=== PATIENT | male | born 1990 | race African-American/Black ===

== ENCOUNTER 2019-03-31 09:42 | Emergency (ER) | payer SELFPAY ==
--- NOTE | 2019-03-31 10:39 | ER ---
Nurse's Notes [facility] Name: Artis North Age: 28 yrs Sex: Male : 1990 Arrival Date: 03/31/2019 Time: 09:45 Bed 10 Private MD: Diagnosis: Conjunctivitis-left eye Presentation: 03/31 09:53 Presenting complaint: Patient states: red, itchy, watery, crusty left eye since iw yesterday. Transition of care: patient was not received from another setting of care. Onset of symptoms was March 30, 2019. Risk Assessment: Do you want to hurt yourself or someone else? Patient reports no desire to harm self or others. Initial Sepsis Screen: Does the patient meet any 2 criteria? No. Patient's initial sepsis screen is negative. Does the patient have a suspected source of infection? No. Patient's initial sepsis screen is negative. Care prior to arrival: None. 09:53 Method Of Arrival: Ambulatory iw 09:53 Acuity: JACKIE 4 iw Historical: - Allergies: 09:56 No Known Allergies; iw - Home Meds: 09:56 None [Active]; iw - PMHx: 09:56 None; iw - PSHx: 09:56 None; iw - Immunization history:: Adult Immunizations up to date. - Social history:: Smoking status: Patient/guardian denies using tobacco. - Ebola Screening: : Patient negative for fever greater than or equal to 101.5 degrees Fahrenheit, and additional compatible Ebola Virus Disease symptoms Patient denies exposure to infectious person Patient denies travel to an Ebola-affected area in the 21 days before illness onset No symptoms or risks identified at this time. Screenin:07 Abuse screen: Denies threats or abuse. Denies injuries from another. Nutritional iw screening: No deficits noted. Tuberculosis screening: No symptoms or risk factors identified. Fall Risk None identified. Assessment: 10:06 General: Appears in no apparent distress. Behavior is calm, cooperative. Pain: Denies iw pain. Neuro: Level of Consciousness is awake, alert, obeys commands, Oriented to person, place, time, situation, Moves all extremities. Cardiovascular: Patient's skin is warm and dry. Respiratory: Respiratory effort is even, unlabored. EENT: Eyes are tearing on outer aspect of conjuctiva of left eye, iris of left eye and inner aspect of conjunctiva of left eye Sclera/Cornea are reddened in outer aspect of conjuctiva of left eye, iris of left eye and inner aspect of conjunctiva of left eye. Derm: Skin is intact, is healthy with good turgor. Musculoskeletal: Range of motion: intact in all extremities. Vital Signs: 10:06 BP 137 / 84; Pulse 86; Resp 16; Temp 98.5; Pulse Ox 100% ; Weight 91.17 kg; Height 5 iw ft. 10 in. (177.80 cm); Pain 0/10; 10:06 Body Mass Index 28.84 (91.17 kg, 177.80 cm) iw Visual Acuity: 10:40 Left Eye Visual acuity 20/40, Pupil size 3 mm, ; Right Eye Visual acuity 20/40, Pupil iw size 3 mm, ; Both Eyes Visual acuity 20/30; Without Lenses; ED Course: 09:45 Patient arrived in ED. as 09:53 Gladys Turcios RN is Primary Nurse. iw 09:55 Triage completed. iw 10:05 Arm band placed on. iw 10:14 Shane Jefferson PA is PHCP. cp 10:14 Robert Gibson MD is Attending Physician. cp 10:36 David White MD is Referral Physician. cp 10:40 No provider procedures requiring assistance completed. Patient did not have IV access iw during this emergency room visit. 10:41 Patient has correct armband on for positive identification. iw Administered Medications: No medications were administered Outcome: 10:37 Discharge ordered by MD. cp 10:39 Discharge instructions given to patient, Instructed on discharge instructions, follow iw up and referral plans. medication usage, Demonstrated understanding of instructions, follow-up care, medications, Prescriptions given X 1. 10:40 Discharged to home ambulatory. iw 10:40 Condition: good 10:54 Patient left the ED. iw Signatures: Laurel Montoya as Gladys Turcios RN RN iw Shane Jefferson PA PA cp
--- NOTE | 2019-03-31 10:39 | EDPHYS ---
Physician Documentation [facility] Name: Artis North Age: 28 yrs Sex: Male : 1990 Arrival Date: 03/31/2019 Time: 09:45 Bed 10 Private MD: ED Physician Robert Gibson HPI: 03/31 10:29 This 28 yrs old Black Male presents to ER via Ambulatory with complaints of Eye Problem.cp 10:30 The patient is experiencing matting or discharge, pain, redness, to the left eye. cp Onset: The symptoms/episode began/occurred 2 day(s) ago. Duration: the symptoms are continuous. Associated signs and symptoms: Pertinent negatives: ear ache, fever. Patient wears glasses. Historical: - Allergies: :56 No Known Allergies; iw - Home Meds: :56 None [Active]; iw - PMHx: :56 None; iw - PSHx: 09:56 None; iw - Immunization history:: Adult Immunizations up to date. - Social history:: Smoking status: Patient/guardian denies using tobacco. - Ebola Screening: : Patient negative for fever greater than or equal to 101.5 degrees Fahrenheit, and additional compatible Ebola Virus Disease symptoms Patient denies exposure to infectious person Patient denies travel to an Ebola-affected area in the 21 days before illness onset No symptoms or risks identified at this time. ROS: 10:30 Constitutional: Negative for body aches, chills, fever, poor PO intake. cp 10:30 Eyes: Positive for pain, redness. cp 10:30 ENT: Negative for drainage from ear(s), ear pain, sore throat, difficulty swallowing, difficulty handling secretions. 10:30 Respiratory: Negative for cough, shortness of breath, wheezing. 10:30 Abdomen/GI: Negative for abdominal pain, nausea, vomiting, and diarrhea. 10:30 Skin: Negative for rash. 10:30 Neuro: Negative for 10:30 All other systems are negative. Exam: 10:31 Head/Face: Normocephalic, atraumatic. cp 10:31 Constitutional: The patient appears in no acute distress, alert, awake, non-diaphoretic, non-toxic, well developed, well nourished, uncomfortable. 10:31 Eyes: Periorbital structures: appear normal, Pupils: equal, round, and reactive to light and accomodation, Extraocular movements: intact throughout, Conjunctiva: normal, no exudate, no injection, Sclera: no appreciated abnormality, Lids and lashes: appear normal, bilaterally. 10:31 ENT: External ear(s): are unremarkable, Ear canal(s): are normal, clear, TM's: dullness, bilaterally, Nose: is normal, Mouth: is normal, Posterior pharynx: is normal, airway is patent, no erythema, no exudate. 10:31 Neck: ROM/movement: is normal, is supple, without pain, no range of motions limitations, no meningismus, no nuchal rigidity. 10:31 Chest/axilla: Inspection: normal, Palpation: is normal, no crepitus, no tenderness. 10:31 Cardiovascular: Rate: normal, Rhythm: regular. 10:31 Respiratory: the patient does not display signs of respiratory distress, Respirations: normal, no use of accessory muscles, no retractions, no splinting, no tachypnea. 10:31 Abdomen/GI: Exam negative for discomfort, distension, guarding, Inspection: abdomen appears normal. 10:31 Neuro: Orientation: to person, place \T\ time. Mentation: is normal, Cerebellar function: is grossly normal, Motor: moves all fours, strength is normal, Sensation: no obvious gross deficits. Vital Signs: 10:06 BP 137 / 84; Pulse 86; Resp 16; Temp 98.5; Pulse Ox 100% ; Weight 91.17 kg; Height 5 iw ft. 10 in. (177.80 cm); Pain 0/10; 10:06 Body Mass Index 28.84 (91.17 kg, 177.80 cm) iw Visual Acuity: 10:40 Left Eye Visual acuity 20/40, Pupil size 3 mm, ; Right Eye Visual acuity 20/40, Pupil iw size 3 mm, ; Both Eyes Visual acuity 20/30; Without Lenses; MDM: 10:15 Patient medically screened. cp 10:36 Data reviewed: vital signs, nurses notes, and as a result, I will admit patient. cp 10:36 Counseling: I had a detailed discussion with the patient and/or guardian regarding: the cp historical points, exam findings, and any diagnostic results supporting the discharge/admit diagnosis, lab results. 03/31 10:21 Order name: Visual Acuity; Complete Time: 10:44 cp Administered Medications: No medications were administered Disposition: 11:00 Chart complete. cp 16:18 Co-signature as Attending Physician, Robert Gibson MD. rn Disposition: 03/31/19 10:37 Discharged to Home. Impression: Conjunctivitis - left eye. - Condition is Stable. - Discharge Instructions: Bacterial Conjunctivitis. - Prescriptions for Gentamicin 0.3 % Ophthalmic Drops - instill 1 drop by OPHTHALMIC route every 4 hours for 7 days; 1 bottle. - Work release form, Medication Reconciliation Form, Thank You Letter, Antibiotic Education, Prescription Opioid Use form. - Follow up: David White MD; When: 1 - 2 days; Reason: Worsening of condition. - Problem is new. - Symptoms have improved. Signatures: Gladys Turcios RN RN iw Nieto, Roman, MD MD rn Page, Corey, PA PA cp Corrections: (The following items were deleted from the chart) 10:35 10:31 Constitutional: Negative for body aches, chills, fever, poor PO intake, cp cp 10:35 10:31 Eyes: Positive for photophobia, Negative for discharge, pain, vision loss, cp cp 10:35 10:31 ENT: Negative for drainage from ear(s), ear pain, sore throat, difficulty cp swallowing, difficulty handling secretions, cp 10:35 10:31 Cardiovascular: Negative for chest pain, palpitations, cp cp 10:35 10:31 Respiratory: Negative for cough, shortness of breath, wheezing, cp cp 10:35 10:31 Abdomen/GI: Negative for abdominal pain, vomiting, diarrhea, constipation, cp cp 10:35 10:31 Neuro: Positive for headache, Negative for altered mental status, weakness, cp cp 10:35 10:31 Skin: Negative for cellulitis, rash, cp cp 10:35 10:31 : Negative for urinary symptoms, cp cp 10:35 10:31 All other systems are negative, cp cp 10:54 10:37 03/31/2019 10:37 Discharged to Home. Impression: Conjunctivitis - left eye. iw Condition is Stable. Discharge Instructions: Bacterial Conjunctivitis. Prescriptions for Gentamicin 0.3 % Ophthalmic Drops - instill 1 drop by OPHTHALMIC route every 4 hours for 7 days; 1 bottle. and Forms are Medication Reconciliation Form, Thank You Letter, Antibiotic Education, Prescription Opioid Use. Follow up: David White; When: 1 - 2 days; Reason: Worsening of condition. Problem is new. Symptoms have improved. cp
[2019-03-31 10:58] VITALS: BP 137/84; TEMP 98.5; O2SAT 100
== END 2019-03-31 10:54 | disposition home or self-care (01) ==
LOC: ER 09:42
DX: H10.9 Unspecified conjunctivitis (principal)
CPT/HCPCS: 99282

== ENCOUNTER 2020-03-28 04:04 | Emergency (ER) | payer SELFPAY ==
--- NOTE | 2020-03-28 04:46 | ER ---
Nurse's Notes [facility] Name: Artis North Age: 29 yrs Sex: Male : 1990 Arrival Date: 03/28/2020 Time: 04:04 Bed 7 Private MD: Diagnosis: Dental caries;Dental root caries;Cutaneous abscess of head [any part, except face]-odontogenic abscess, left upper 1st Molar;Fracture of tooth (traumatic)-old Presentation: 03/28 04:10 Chief complaint: Patient states: Amy got a bad tooth or something, jaw pain and sg toothache, denies N/V//D/Fever at this time. pain with chewing/talking reported. Coronavirus screen: Client denies travel out of the [place] in the last 14 days. At this time, the client does not indicate any symptoms associated with coronavirus-19. Ebola Screen: Patient negative for fever greater than or equal to 101.5 degrees Fahrenheit, and additional compatible Ebola Virus Disease symptoms Patient denies exposure to infectious person. Patient denies travel to an Ebola-affected area in the 21 days before illness onset. No symptoms or risks identified at this time. Initial Sepsis Screen: Does the patient meet any 2 criteria? No. Patient's initial sepsis screen is negative. Does the patient have a suspected source of infection? No. Patient's initial sepsis screen is negative. Risk Assessment: Do you want to hurt yourself or someone else? Patient reports no desire to harm self or others. Onset of symptoms was March 28, 2020. Care prior to arrival: None. Transition of care: patient was not received from another setting of care. 04:10 Method Of Arrival: Ambulatory sg 04:10 Acuity: JACKIE 4 sg Historical: - Allergies: 04:13 No Known Allergies; sg - Home Meds: 04:18 None [Active]; sg - PMHx: 04:18 None; sg - PSHx: 04:13 None; sg - Immunization history:: Adult Immunizations up to date. - Social history:: Smoking status: Patient denies any tobacco usage or history of. - Family history:: not pertinent. Screenin:21 Abuse screen: Denies threats or abuse. Nutritional screening: No deficits noted. ea Tuberculosis screening: No symptoms or risk factors identified. Fall Risk None identified. Assessment: 04:28 General: Appears uncomfortable, Behavior is appropriate for age. Pain: Complains of ea pain in left ear, left cheek and left jaw. Neuro: Level of Consciousness is awake, alert, obeys commands, Oriented to person, place, time, situation. Cardiovascular: Patient's skin is warm and dry. Respiratory: Airway is patent Respiratory effort is even, unlabored, Respiratory pattern is regular, symmetrical. EENT:. EENT: Parent/caregiver reports the patient having pain in left ear, left cheek and left jaw. Derm: swelling noted to left side of face. 04:53 Reassessment: Patient and/or family updated on plan of care and expected duration. Pain ea level reassessed. Patient is alert, oriented x 3, equal unlabored respirations, skin warm/dry/pink. Discharge instruction given to patient, verbalized the understanding of instruction. Pt left ED ambulatory tolerating well. Vital Signs: 04:21 BP 158 / 86; Pulse 82; Resp 16; Temp 97.5; Pulse Ox 98% ; ea ED Course: 04:04 Patient arrived in ED. cl3 04:07 Shane Suarez MD is Attending Physician. kayla 04:10 Arm band placed on. sg 04:17 Tricia Gutierrez, FAREED is Primary Nurse. ea 04:18 Triage completed. sg 04:34 Patient has correct armband on for positive identification. Bed in low position. Call ea light in reach. 04:43 Brennen Dominguez DDS is Referral Physician. kayla 04:54 No provider procedures requiring assistance completed. Patient did not have IV access ea during this emergency room visit. Administered Medications: 04:40 Drug: Clindamycin 600 mg Route: IM; Site: left gluteus; ea 04:54 Follow up: Response: No adverse reaction ea 04:46 Drug: Clindamycin 300 mg Route: PO; ea 04:54 Follow up: Response: No adverse reaction ea 04:46 Drug: Motrin 600 mg Route: PO; ea 04:54 Follow up: Response: No adverse reaction ea Outcome: 04:45 Discharge ordered by . kayla 04:54 Discharged to home ambulatory, with family. ea 04:54 Condition: stable 04:54 Discharge instructions given to patient, Instructed on discharge instructions, follow up and referral plans. medication usage, Demonstrated understanding of instructions, follow-up care, medications, Prescriptions given X 2. 04:55 Patient left the ED. ea Signatures: Cristopher Forbes RN RN sg Anderson, Corey, MD MD cha Antunez, Elena, RN RN ea Lewis, Charde cl3
--- NOTE | 2020-03-28 04:46 | EDPHYS ---
Physician Documentation [facility] Name: Artis North Age: 29 yrs Sex: Male : 1990 Arrival Date: 03/28/2020 Time: 04:04 Bed 7 Private MD: ED Physician Shane Suarez HPI: 03/28 04:33 This 29 yrs old Black Male presents to ER via Ambulatory with complaints of Toothache. kayla 04:33 The patient presents with broken tooth/teeth. The problem is located in the left cheek. kayla Onset: The symptoms/episode began/occurred 3 day(s) ago. Duration: The symptoms are continuous, and are steadily getting worse. Modifying factors: The symptoms are alleviated by nothing, the symptoms are aggravated by nothing. Associated signs and symptoms: The patient has no apparent associated signs or symptoms. Severity of symptoms: At their worst the symptoms were mild, in the emergency department the symptoms are unchanged. The patient has experienced similar episodes in the past, a few times. Historical: - Allergies: 04:13 No Known Allergies; sg - Home Meds: 04:18 None [Active]; sg - PMHx: 04:18 None; sg - PSHx: 04:13 None; sg - Immunization history:: Adult Immunizations up to date. - Social history:: Smoking status: Patient denies any tobacco usage or history of. - Family history:: not pertinent. ROS: 04:33 Constitutional: Negative for fever, chills, and weight loss, Eyes: Negative for injury, kayla pain, redness, and discharge, Neck: Negative for injury, pain, and swelling, Cardiovascular: Negative for chest pain, palpitations, and edema, Respiratory: Negative for shortness of breath, cough, wheezing, and pleuritic chest pain, Abdomen/GI: Negative for abdominal pain, nausea, vomiting, diarrhea, and constipation, Back: Negative for injury and pain, : Negative for injury, bleeding, discharge, and swelling, MS/Extremity: Negative for injury and deformity, Skin: Negative for injury, rash, and discoloration, Neuro: Negative for headache, weakness, numbness, tingling, and seizure, Psych: Negative for depression, anxiety, suicide ideation, homicidal ideation, and hallucinations, Allergy/Immunology: Negative for hives, rash, and allergies, Endocrine: Negative for neck swelling, polydipsia, polyuria, polyphagia, and marked weight changes, Hematologic/Lymphatic: Negative for swollen nodes, abnormal bleeding, and unusual bruising. 04:33 ENT: Positive for Gum pain Teeth pain Exam: 04:33 Constitutional: This is a well developed, well nourished patient who is awake, alert, kayla and in no acute distress. Eyes: Pupils equal round and reactive to light, extra-ocular motions intact. Lids and lashes normal. Conjunctiva and sclera are non-icteric and not injected. Cornea within normal limits. Periorbital areas with no swelling, redness, or edema. Neck: Trachea midline, no thyromegaly or masses palpated, and no cervical lymphadenopathy. Supple, full range of motion without nuchal rigidity, or vertebral point tenderness. No Meningismus. Chest/axilla: Normal chest wall appearance and motion. Nontender with no deformity. No lesions are appreciated. Cardiovascular: Regular rate and rhythm with a normal S1 and S2. No gallops, murmurs, or rubs. Normal PMI, no JVD. No pulse deficits. Respiratory: Lungs have equal breath sounds bilaterally, clear to auscultation and percussion. No rales, rhonchi or wheezes noted. No increased work of breathing, no retractions or nasal flaring. Abdomen/GI: Soft, non-tender, with normal bowel sounds. No distension or tympany. No guarding or rebound. No evidence of tenderness throughout. Back: No spinal tenderness. No costovertebral tenderness. Full range of motion. Male : Normal genitalia with no discharge or lesions. Skin: Warm, dry with normal turgor. Normal color with no rashes, no lesions, and no evidence of cellulitis. MS/ Extremity: Pulses equal, no cyanosis. Neurovascular intact. Full, normal range of motion. Neuro: Awake and alert, GCS 15, oriented to person, place, time, and situation. Cranial nerves II-XII grossly intact. Motor strength 5/5 in all extremities. Sensory grossly intact. Cerebellar exam normal. Normal gait. Psych: Awake, alert, with orientation to person, place and time. Behavior, mood, and affect are within normal limits. 04:33 Head/face: Noted is swelling, tenderness, that is moderate, of the left cheek and left jaw. Vital Signs: 04:21 BP 158 / 86; Pulse 82; Resp 16; Temp 97.5; Pulse Ox 98% ; ea MDM: 04:09 Patient medically screened. [facility] 04:38 Differential diagnosis: dental caries, dental abscess, gingivostomatitis. Data [facility] reviewed: vital signs, nurses notes. Data interpreted: alarm security or surveillance monitor: not applicable for this patient encounter. rate is 82 beats/min, rhythm is regular, Pulse oximetry: on room air is 98 %. Test interpretation: by ED physician or midlevel provider: plain radiologic studies. Counseling: I had a detailed discussion with the patient and/or guardian regarding: the historical points, exam findings, and any diagnostic results supporting the discharge/admit diagnosis, the need for outpatient follow up, for definitive care, a dentist, an oral maxilofacial specialist. 04:40 ED course: explained to patient importance of follow up, Dr Dominguez ot [employer] [facility] [employer] [facility]. Administered Medications: 04:40 Drug: Clindamycin 600 mg Route: IM; Site: left gluteus; ea 04:54 Follow up: Response: No adverse reaction ea 04:46 Drug: Clindamycin 300 mg Route: PO; ea 04:54 Follow up: Response: No adverse reaction ea 04:46 Drug: Motrin 600 mg Route: PO; ea 04:54 Follow up: Response: No adverse reaction ea Disposition: 03/28/20 04:45 Discharged to Home. Impression: Dental caries, Dental root caries, Cutaneous abscess of head [any part, except face] - odontogenic abscess, left upper 1st Molar, Fracture of tooth (traumatic) - old. - Condition is Stable. - Discharge Instructions: Dental Caries, Adult, Dental Pain, Dental Pain, [id number], Dental Caries, [id number]. - Prescriptions for Clindamycin HCl 300 mg Oral Capsule - take 1 capsule by ORAL route every 6 hours for 10 days; 40 capsule. Tylenol- Codeine #3 300-30 mg Oral Tablet - take 2 tablets by ORAL route every 6 hours As needed; 20 tablet. - Medication Reconciliation Form, Thank You Letter, Antibiotic Education, Prescription Opioid Use form. - Follow up: Private Physician; When: 1 - 2 days; Reason: Recheck today's complaints, Continuance of care, Re-evaluation by your physician. Follow up: Brennen Dominguez DDS; When: Today; Reason: Recheck today's complaints, Re-evaluation by your physician. - Problem is new. - Symptoms have improved. Signatures: Cristopher Forbes, RN RN Shane Andersen MD MD cha Antunez, Elena, RN RN ea Corrections: (The following items were deleted from the chart) 04:55 04:45 03/28/2020 04:45 Discharged to Home. Impression: Dental caries; Dental root ea caries; Cutaneous abscess of head [any part, except face] - odontogenic abscess, left upper 1st Molar; Fracture of tooth (traumatic) - old. Condition is Stable. Forms are Medication Reconciliation Form, Thank You Letter, Antibiotic Education, Prescription Opioid Use. Follow up: Private Physician; When: 1 - 2 days; Reason: Recheck today's complaints, Continuance of care, Re-evaluation by your physician. Follow up: Brennen Dominguez; When: Today; Reason: Recheck today's complaints, Re-evaluation by your physician. Problem is new. Symptoms have improved. kayla
[2020-03-28] MEDS ORDERED: CLINDAMYCIN IV 150 MG/ML (4 mL) VIAL ONE (04:50)
[2020-03-28] MEDS ORDERED: IBUPROFEN 200 MG TAB PO ONE (04:51)
[2020-03-30 09:33] VITALS: BP 158/86; TEMP 97.5; O2SAT 98
== END 2020-03-28 04:55 | disposition home or self-care (01) ==
LOC: ER 04:04
DX: K02.7 Dental root caries (principal); K04.7 Periapical abscess without sinus; L02.811 Cutaneous abscess of head [any part, except face]; S02.5XXG Fracture of tooth (traumatic), subsequent encounter for fracture with delayed healing
CPT/HCPCS: 96372; 99283; S0077